=== PATIENT | male | born 1975 | race Hispanic/Latino ===

== ENCOUNTER 2024-10-27 18:50 | Emergency (ER) | payer BC, OTHER ==
[~2024-10-27] VITALS: Ht 170.2 cm; Wt 127.0 kg
[2024-10-27 19:15] VITALS: PULSE 100; RESP 16; TEMP 97
[2024-10-27 19:53] LABS: BASOPHILS # (AUTO) 0.1 (0.0-0.1); BASOPHILS % 0.8 % (0.0-1.0); EOSINOPHILS # (AUTO) 0.1 (0.0-0.4); EOSINOPHILS % 1.1 % (0.0-6.0); HEMATOCRIT 44.2 % (38.2-49.6); HEMOGLOBIN 15.1 g/dL (14.0-18.0); LYMPHOCYTES % 31.8 % (18.0-39.1); MEAN CORPUSCULAR HEMOGLOBIN 30.4 pg (28-32); MEAN CORPUSCULAR HGB CONC 34.2 g/dL (31-35); MEAN CORPUSCULAR VOLUME 88.9 fL (81-99); MONOCYTES # (AUTO) 0.8 (0.2-0.8); NEUTROPHILS # (AUTO) 5.5 (2.1-6.9); NEUTROPHILS % 58.1 % (38.7-80.0); PLATELET COUNT 265 x10e3/uL (140-360); RED BLOOD COUNT 4.97 x10e6/uL (4.3-5.7); RED CELL DISTRIBUTION WIDTH 12.9 % (11.7-14.4)
[2024-10-27 20:11] LABS: ALANINE AMINOTRANSFERASE 53 IU/L (0-55); ALBUMIN 4.2 g/dL (3.5-5.0); ALBUMIN/GLOBULIN RATIO 1.1 (0.8-2.0); ALKALINE PHOSPHATASE 50 IU/L (40-150); ANION GAP 14.8 mmol/L (8-16); BILIRUBIN,TOTAL 0.6 mg/dL (0.2-1.2); BLOOD UREA NITROGEN 11 mg/dL (7-26); BUN/CREATININE RATIO 11 (6-25); CALCIUM 9.8 mg/dL (8.4-10.2); CARBON DIOXIDE 24 mmol/L (22-29); CHLORIDE 106 mmol/L (98-107); CREATINE KINASE 135 IU/L (30-200); CREATININE, SERUM 0.98 mg/dL (0.72-1.25); EST GLOMERULAR FILTRATION RATE 93 ML/MIN (>=60); GLUCOSE 125 mg/dL (74-118); LIPASE 56 U/L (8-78); POTASSIUM 3.8 mmol/L (3.5-5.1); SODIUM 141 mmol/L (136-145); TOTAL PROTEIN 8.1 g/dL (6.5-8.1)
[2024-10-27 20:17] LABS: TROPONIN I < 0.001 ng/mL (0-0.300)
[2024-10-27] MEDS ORDERED: SODIUM CHLORIDE 0.9% 100 ML ONE (20:18)
[2024-10-27] MEDS ORDERED: IOPAMIDOL 370 MG/ML 100 ML INFUS..BTL INJ ONE (20:18)
[2024-10-27] MEDS: SODIUM CHLORIDE 0.9% 1000ML 1,000 ML IV STA (20:58)
[2024-10-27] MEDS: KETOROLAC TROMETHAMINE 30 MG/ML VIAL IV STA (22:22)
[2024-10-27 22:53] VITALS: BP 129/86; O2SAT 100
== END 2024-10-27 22:54 | disposition home or self-care (01) ==
LOC: ER 19:04
DX: K92.1 Melena (principal); K64.9 Unspecified hemorrhoids; Z86.711 Personal history of pulmonary embolism
CPT/HCPCS: 36415; 74174; 80053; 82550; 83690; 84484; 85025; 99284; J1885; J7030; J7050; Q9967